=== PATIENT | male | born 1970 | race Caucasian/White ===

== ENCOUNTER 2022-12-03 10:33 | Emergency (ER) | payer OTHER ==
[~2022-12-03] VITALS: Ht 185.4 cm; Wt 95.2 kg
[2022-12-03] MEDS ORDERED: LANTUS100 UNITS/ SUB-Q (11:13)
[2022-12-03] MEDS ORDERED: NOVOLIN R100 UNIT/1 INJ (11:13)
[2022-12-03] MEDS ORDERED: ZESTRIL40 MG PO (11:14)
[2022-12-03] MEDS ORDERED: FENOFIBRATE40 MG PO (11:14)
[2022-12-03] MEDS ORDERED: LIPITOR80 MG GT (11:15)
--- NOTE | 2022-12-04 22:06 | EKG ---
[facility] [address] [facility] [place], [place] [address] Signed Normal sinus rhythm Normal ECG No previous ECGs available Confirmed by DWAYNE RIGGS MD ([id number] on 12/04/2022 10:06:19 PM Electronically Signed By: DWAYNE RIGGS MD 12/04/222205 PATIENT NAME: VIKTORIA GILBERT Electrocardiogram DATE OF : 68 PHYSICIAN: DWAYNE RIGGS MD REPORT #: [id number] REPORT IS CONFIDENTIAL AND NOT TO BE RELEASED WITHOUT AUTHORIZATION
== END 2022-12-03 11:41 | disposition home or self-care (01) ==
LOC: ED 10:33
DX: R07.2 Precordial pain (principal); I10 Essential (primary) hypertension; E11.9 Type 2 diabetes mellitus without complications; E78.00 Pure hypercholesterolemia, unspecified; Z88.0 Allergy status to penicillin; Z88.2 Allergy status to sulfonamides; Z79.4 Long term (current) use of insulin; Z79.899 Other long term (current) drug therapy
CPT/HCPCS: 36415; 71045; 80053; 83690; 84484; 85025; 93005; 93010; 99285-25